=== PATIENT | female | born 1980 | race Two or more races ===

== ENCOUNTER 2021-04-16 06:42 | Day surgery (SDC) | payer OTHER ==
[2021-04-16] MEDS ORDERED: PROTONIX20 MG PO (09:41)
== END 2021-04-16 12:00 | disposition home or self-care (01) ==
LOC: AMB-ENDOS 06:42
PROVIDERS: ATTEND Surgery
DX: K29.50 Unspecified chronic gastritis without bleeding (principal); K44.9 Diaphragmatic hernia without obstruction or gangrene; Z20.822 Contact with and (suspected) exposure to COVID-19